=== PATIENT | male | born 1940 | race Caucasian/White ===

== ENCOUNTER 2019-04-11 00:38 | Emergency (ER) | payer MEDICARE ==
--- NOTE | 2019-04-11 00:59 | ED ---
HPI Chest Pain - HPI Summary HPI Summary: This pt is a 79 Y/O M presenting to [facility] for a CC of CP that was described as heart burn that originated at 1800 04/10/19 and is currently rated a 4/10. He states that as the day meena on he became lightheaded, dizzy and had a headache. He worked out today at around 1530 and states that the pain started increasing later on. He worked on the [employer] and did strength training. He denies any N /V, abdominal pain, SOB, sore throat, and fevers. He states that he has no alleviating or aggravating factors. He has a PMHx of a previous heart attack at 59 Y/O and had 2 stents placed. He states that he has had multiple stress tests without issues. He also has a PMHx of Parkinsons disease and states that he works out 5 days a week. - History of Current Complaint Chief Complaint: EDChestPainROMI Time Seen by Provider: 04/11/19 00:48 Hx Obtained From: Patient Onset/Duration: Started Hours Ago - 6, Still Present Time of Onset: 18:00 Timing: Constant Initial Severity: Moderate Current Severity: Moderate Pain Intensity: 4 Pain Scale Used: 0-10 Numeric Chest Pain Radiates: No Character: Burning Aggravating Factor(s): Other: - working out Alleviating Factor(s): Nothing Associated Signs and Symptoms: Positive: Chest Pain, Headaches, Dizziness, Lightheadedness. Negative: Shortness of Breath, Fever, Chills, Nausea, Vomiting - Allergy/Home Medications Allergies/Adverse Reactions: Allergies Allergy/AdvReac Type Severity Reaction Status Date / Time erythromycin base Allergy Rash Verified 04/11/19 00:50 Home Medications: Home Medications Carbidopa/Levodopa [Carbidopa-Levodopa 25-100 Tab] 25 mg PO DAILY 04/11/19 [ History Confirmed 04/11/19] PMH/Surg Hx/FS Hx/Imm Hx Previously Healthy: Yes Endocrine/Hematology History: Denies: Hx Diabetes Cardiovascular History: Reports: Hx Cardiac Arrest - age 59 Neurological History: Reports: Other Neuro Impairments/Disorders - Parkinson's disease - Cancer History Cancer Type, Location and Year: Prostate cancer - Surgical History Surgical History: Yes Surgery Procedure, Year, and Place: Removal of the prostate. - Immunization History Immunizations Up to Date: Yes Infectious Disease History: No Infectious Disease History: Denies: Traveled Outside the [place] in Last 30 Days - Social History Hx Substance Use: No Substance Use Type: Reports: None Review of Systems Constitutional: Other - lightheadedness, dizzy Negative: Fever Negative: Sore Throat Positive: Chest Pain Negative: Shortness Of Breath Negative: Vomiting, Nausea Positive: Headache All Other Systems Reviewed And Are Negative: Yes Physical Exam - Summary Physical Exam Summary: Appearance: Well-appearing, Well-nourished, lying in bed comfortably Skin: Warm, dry, no obvious rash Eyes: sclera anicteric, no conjunctival pallor ENT: mucous membranes moist, pharynx appears normal Neck: Supple, nontender Respiratory: Clear to auscultation, no signs of respiratory distress Cardiovascular: Normal S1, S2. No murmurs. Normal distal pulses in tibial and radial bilaterally. Abdomen: Soft, nontender, normal active bowel sounds present Musculoskeletal: Normal, Strength/ROM Intact Neurological: A&Ox3, awake and alert, mentation is normal, speech is fluent and appropriate Psychiatric: affect is normal, does not appear anxious or depressed Triage Information Reviewed: Yes Vital Signs On Initial Exam: Initial Vitals Temp Pulse Resp BP Pulse Ox 97.2 F 58 16 158/77 99 04/11/19 00:47 04/11/19 00:47 04/11/19 00:47 04/11/19 00:47 04/11/19 00:47 Vital Signs Reviewed: Yes Procedures - Sedation Patient Received Moderate/Deep Sedation with Procedure: No Diagnostics - Vital Signs Vital Signs Temp Pulse Resp BP Pulse Ox 04/11/19 00:47 97.2 F 58 16 158/77 99 - Laboratory Result Diagrams: 04/11/19 01:26 04/11/19 01:26 Lab Statement: Any lab studies that have been ordered have been reviewed, and results considered in the medical decision making process. - Radiology CXR Radiology Interpretation Completed By: ED Physician Summary of Radiographic Findings: No acute processes. Pending offical review. - EKG 0041 Cardiac Rate: NL - 63 BPM EKG Rhythm: Sinus Rhythm ST Segment: Normal Ectopy: None Summary of EKG Findings: NSR at 63 BPM, P waves, QRS complex, and T waves are within normal limits, T waves and intervals are normal, no ischemic changes. This is a normal EKG. Interpreted by Dr. Castle at 0041 10/5/19. Chest Pain Course/Dx - Course Course Of Treatment: This pt is a 79 Y/O M presenting to [facility] for a CC of CP that was described as heart burn that originated at 1800 04/10/19 and is currently rated a 4/10. He states that as the day meena on he became lightheaded and had a headache. He worked out today at around 1530 and states that the pain started increasing later on. He worked on the elliptical and did strength training. He denies any N/V, abdominal pain, SOB, sore throat, and fevers. He had a HI 20 years ago. His PE has no acute abnormalities. His EKG at 0041 shows NSR at 63 BPM, P waves, QRS complex, and T waves are within normal limits , T waves and intervals are normal, no ischemic changes. This is a normal EKG. His CXR shows no acute processes. His two troponin tests came back negative and he will be discharged home with a Dx of chest pain. - Diagnoses Provider Diagnoses: Chest pain Discharge ED - Sign-Out/Discharge Documenting (check all that apply): Patient Departure - discharge - Discharge Plan Condition: Good Disposition: HOME Patient Education Materials: Chest Pain (ED) Referrals: Esha Khalil MD [Medical Doctor] - 3 Days Additional Instructions: Please contact Dr. Khalil's office for a followup appointment. If you have more trouble over the weekend, we should see you back here. - Billing Disposition and Condition Condition: GOOD Disposition: Home - Attestation Statements Document Initiated by Afsaneh: Yes Documenting Scribe: Min Irvin Provider For Whom Afsaneh is Documenting (Include Credential): Rock Castle MD Scribserafin Attestation: Min Lopez, scribed for Rock Castle MD on 04/12/19 at 0113. Scribe Documentation Reviewed: Yes Provider Attestation: The documentation as recorded by the Min cooper accurately reflects the service I personally performed and the decisions made by me, Rock Castle MD Status of Scribe Document: Viewed
[2019-04-11 02:03] LABS: ALT < 3 U/L (7-52); AST 14 U/L (13-39); Albumin 3.8 g/dL (3.2-5.2); Albumin/Globulin Ratio 1.8 (1-3); Alkaline Phosphatase 56 U/L (34-104); Anion Gap 7 mmol/L (2-11); BUN/Creatinine Ratio 17.9 (8-20); Blood Urea Nitrogen 20 mg/dL (6-24); CO2 Carbon Dioxide 25 mmol/L (22-32); Calcium 9.5 mg/dL (8.6-10.3); Chloride 107 mmol/L (101-111); EGFR African American 76.5 (>60); EGFR Non-African American 63.2 (>60); Globulin 2.1 g/dL (2-4); Glucose 94 mg/dL (70-100); Sodium 139 mmol/L (135-145); Total Protein 5.9 g/dL (6.4-8.9)
[2019-04-11 02:26] LABS: ABS Basophils 0.1 10^3/ul (0-0.2); ABS Eosinophils 0.1 10^3/ul (0-0.6); ABS Monocytes 0.7 10^3/ul (0-0.8); Eosinophil % 1.9 %; Hematocrit 41 % (42-52); Hemoglobin 13.8 g/dL (14.0-18.0); Lymphocyte % 29.3 %; Mean Corpuscular HGB Conc 34 g/dL (31-36); Mean Corpuscular Hemoglobin 32 pg (27-31); Mean Corpuscular Volume 94 fL (80-94); Mean Platelet Volume 9.1 fL (7.4-10.4); Platelet Count 217 10^3/uL (150-450); Red Blood Count 4.32 10^6 /uL (4.18-5.48); Red Cell Distribution Width 14 % (10-15); White Blood Count 6.9 10^3/uL (3.5-10.8)
[2019-04-11 05:17] VITALS: BP 125/72
== END 2019-04-11 05:04 | disposition home or self-care (01) ==
LOC: ED 00:38
DX: R07.9 Chest pain, unspecified (principal); Z86.74 Personal history of sudden cardiac arrest; Z85.46 Personal history of malignant neoplasm of prostate; Z79.82 Long term (current) use of aspirin; Z79.899 Other long term (current) drug therapy; Z88.1 Allergy status to other antibiotic agents
CPT/HCPCS: 36415; 71046; 80053; 84484; 85025; 93005; 99283